=== PATIENT | female | born 1960 | race Caucasian/White ===

== ENCOUNTER 2025-04-24 13:51 | Outpatient (CLI) | payer MEDICAID ==
[~2025-04-24 13:51] MED LIST: HYDR-4383 PO; POTA-207 PO
--- NOTE | 2025-04-24 17:28 | CARDIOLOGY REPORT ---
APPROVED REPORT EXAM: Comprehensive 2D, Doppler, and color-flow Echocardiogram. Patient Location: OUT-PATIENT Blood Pressure: 140/77 mmHg Heart Rate: 67 bpm Rhythm: SINUS Indications [facility] HYPERTENSION Batch Unit Treater: Roddy Givens MD Previous echo: none 2D Dimensions RVDd 3.0 cm IVSd 1.0 (0.7-1.1cm) LVDd 3.9 cm PWd 0.9 (0.7-1.1cm) IVSs 1.2 (0.8-1.2cm) LVDs 2.7 (2.5-4.0cm) PWs 1.3 (0.8-1.2cm) LVOT Diameter 1.97 (1.8-2.4cm) LVEF(%) 58.9 (>50%) Ao Asc Diam. 2.84 cm LA Volume 54 (18-58mL) FS (%) 30.7 % SV 39.2 ml M-Mode Dimensions Left Atrium(MM) 3.30 (2.5-4.0cm) IVSd 0.83 (0.7-1.1cm) LVDd 4.31 (4.0-5.6cm) Aortic Root 2.50 (2.2-3.7cm) PWd 0.93 (0.7-1.1cm) Aortic Cusp Exc 1.39 (1.5-2.0cm) IVSs 1.24 cm MV EPSS 0.1 (<0.5cm) LVDs 2.47 (2.0-3.8cm) FS (%) 43 % PWs 1.51 cm ESV(Teich) 21.7 ml Biplane 2D LA Volumes LA ESV A2C 59.38 mL/m2 LA ESV A4C 44.86 mL/m2 Aortic Valve AoV Peak Brent. 183.8 cm/s AoV VTI 42.9 cm AO Peak GR. 13.5 mmHg AO Mean GR. 7 mmHg LVOT VTI 27.87 cm LVOT Peak Brent. 117.5 cm/s EDU (VTI) 2.01 cm2 Mitral Valve MV E Velocity 103.5 cm/s MV DECEL TIME 206 ms MV A Velocity 118.9 cm/s MV PHT 60 ms E/A Ratio 0.9 MVA (PHT) 3.65 cm2 Tricuspid Valve TR P. Velocity 225 cm/s RAP ESTIMATE 10 mmHg TR Peak Gr. 20 mmHg RVSP 30 mmHg Pulmonary Vein S2 Velocity 71.24 cm/s PVa Duration 111 msec LEFT VENTRICLE Normal LV size and wall thickness. Overall systolic function is normal. LVEF is 60-65%. RIGHT VENTRICLE RV is normal size and function. ATRIA LA appears at least mildly dilated. RA size appears normal. AORTIC VALVE Trileaflet AV appears mildly sclerotic without stenosis or insufficiency. MITRAL VALVE Mild MV annular calcification without stenosis. Mild regurgitation. TRICUSPID VALVE TV appears structurally normal with trace regurgitation. PULMONIC VALVE Normal PV without stenosis, physiologic insufficiency. GREAT VESSELS The aortic root is normal in size. The ascending aorta is normal in size. PERICARDIUM Normal pericardium. No effusion. Other Information Study Quality: Adequate Conclusion Normal LV size and wall thickness. Overall systolic function is normal. LVEF is 60-65%. RV is normal size and function. LA appears at least mildly dilated. RA size appears normal. Trileaflet AV appears mildly sclerotic without stenosis or insufficiency. Mild MV annular calcification without stenosis. Mild regurgitation. TV appears structurally normal with trace regurgitation. Normal pericardium. No effusion.
== END 2025-04-24 23:59 | disposition home or self-care (01) ==
LOC: CARD DIAG 13:51
PROVIDERS: ATTEND Physician Assistant
DX: I08.8 Other rheumatic multiple valve diseases (principal); R01.1 Cardiac murmur, unspecified
CPT/HCPCS: 93306